=== PATIENT | female | born 1970 | race Asian ===

== ENCOUNTER 2021-03-27 19:38 | Emergency (ER) | payer OTHER ==
[2021-03-27 20:57] VITALS: BP 156/93
[2021-03-27] MEDS ORDERED: IBUPROFEN 800 MG TAB PO NR (20:57)
[2021-03-27] MEDS ORDERED: ACETAMINOPHEN 500 MG TAB PO NR (20:57)
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
== END 2021-03-28 03:00 | disposition home or self-care (01) ==
LOC: ED 19:38
DX: S20.219A Contusion of unspecified front wall of thorax, initial encounter (principal); M62.838 Other muscle spasm; M54.2 Cervicalgia; R07.89 Other chest pain; M79.602 Pain in left arm; V89.2XXA Person injured in unspecified motor-vehicle accident, traffic, initial encounter; Y93.89 Activity, other specified; Y92.488 Other paved roadways as the place of occurrence of the external cause; Y99.8 Other external cause status
CPT/HCPCS: 71046; 72040; 99283